=== PATIENT | male | born 1960 | race Caucasian/White ===

== ENCOUNTER → 2017-03-24 | Outpatient (CLI) | payer OTHER | LOC: CIMAGING 09:00 | PROVIDERS: ATTEND Surgery | DX: K80.20 Calculus of gallbladder without cholecystitis without obstruction (principal); K76.0 Fatty (change of) liver, not elsewhere classified | CPT/HCPCS: 76705-PO ==

== ENCOUNTER 2017-04-08 07:21 | Day surgery (SDC) | payer OTHER ==
[~2017-04-08 07:21] MED LIST: ceFAZolin 2 GM/DEXTROSE 100 ML IV ONE
[2017-04-08] MEDS ORDERED: LIDOCAINE 1% 2 ML INJ ONE (07:59)
[2017-04-08] MEDS ORDERED: LIDOCAINE 1% 2 ML INJ ID PRN (08:05)
[2017-04-08] MEDS ORDERED: LR 1,000 ML IV ONE (08:05)
[2017-04-08] MEDS ORDERED: BUPIVACAINE/EPI 0.25% 30 ML SDV ONE (08:06)
[2017-04-08] MEDS ORDERED: IOPAMIDOL (ISOVUE-M 300) 15 ML VIAL ONE (08:06)
--- NOTE | 2017-04-08 08:23 | PDHPUP ---
History & Physical Update H&P update statement: This history and physical update is based on an assessment of the patient which was completed after admission or registration (within 24 hours), but prior to the surgery/procedure. H&P update: H&P reviewed & patient examined, no change in patient's condition since H&P completed
[2017-04-08] MEDS ORDERED: PROPOFOL 200 MG/20 ML VIAL ONE ×2 (08:40→08:41)
[2017-04-08] MEDS ORDERED: fentaNYL 100 MCG/2 ML INJ ONE ×2 (08:41→09:59)
[2017-04-08] MEDS ORDERED: MIDAZOLAM 2 MG/2 ML VIAL ONE (08:41)
[2017-04-08 08:42] LABS: ANION GAP 10 mEq/L (8-16); CALCIUM 9.5 mg/dL (8.5-10.4); CARBON DIOXIDE 25 mEq/l (22-31); CHLORIDE 100 mEq/L (97-110); CREATININE 0.8 mg/dL (0.7-1.3); GLOMERULAR FILTRATION RATE > 60; GLUCOSE 95 mg/dL (70-100); POTASSIUM 3.9 mEq/L (3.5-5.2); SODIUM 135 mEq/L (134-144)
[2017-04-08] MEDS ORDERED: DEXAMETHASONE 4 MG/ML VIAL ONE (08:57)
[2017-04-08] MEDS ORDERED: ROCURONIUM 50 MG/5 ML VIAL ONE (08:57)
[2017-04-08] MEDS ORDERED: SUGAMMADEX SODIUM 200 MG/2 ML VIAL IVP ONE (08:57)
[2017-04-08] MEDS ORDERED: METOCLOPRAMIDE 10 MG/2 ML VIAL ONE (08:57)
[2017-04-08] MEDS ORDERED: KETOROLAC 30 MG/1 ML SDV ONE (08:57)
[2017-04-08] MEDS ORDERED: LIDOCAINE 2% 5 ML SDV ONE (08:57)
[2017-04-08] MEDS ORDERED: RANITIDINE 50 MG/2 ML VIAL ONE (08:57)
[2017-04-08] MEDS ORDERED: ONDANSETRON 4 MG/2 ML VIAL ONE (08:57)
--- NOTE | 2017-04-08 09:02 | PDANEPAE ---
ANE Past Medical History - Cardiovascular History Hx Hypertension: Yes Hx Arrhythmias: No Hx Chest Pain: No Hx Coronary Artery / Peripheral Vascular Disease: No Hx CHF / Valvular Disease: No Hx Palpitations: No - Pulmonary History Hx COPD: No Hx Asthma/Reactive Airway Disease: No Hx Recent Upper Respiratory Infection: No Hx Oxygen in Use at Home: No - Neurologic History Hx Cerebrovascular Accident: No Hx Seizures: No Hx Dementia: No - Endocrine History Hx Diabetes: No - Renal History Hx Renal Disorders: Yes - Liver History Hx Hepatic Disorders: Yes - Neurological & Psychiatric Hx Hx Neurological and Psychiatric Disorders: No - Cancer History Hx Cancer: Yes - Congenital Disorder History Hx Congenital Disorders: No - GI History Hx Gastrointestinal Disorders: No - Chronic Pain History Chronic Pain: No ANE Review of Systems - Exercise capacity METS (RN): 4 METS ANE Patient History - Allergies Allergies/Adverse Reactions: Sulfa (Sulfonamide Antibiotics) Allergy (Verified 04/01/17 11:40) Unknown - Home Medications Home Medications: LORAZEPAM PRN 04/01/17 [Last Taken 04/06/17] Lisinopril/Hydrochlorothiazide 04/01/17 [Last Taken 04/07/17 20:00] TESTOSTERONE 04/01/17 [Last Taken Unknown] - NPO status NPO Since - Liquids (Date): 04/07/17 NPO Since - Liquids (Time): 21:00 NPO Since - Solids (Date): 04/07/17 NPO Since - Solids (Time): 16:00 - Smoking Hx Smoking Status: Never smoked - Family Anes Hx Family Hx Anesthesia Complications: none ANE Labs/Vital Signs - Labs Result Diagrams: 04/08/17 08:10 - Vital Signs Blood Pressure: 131/96 Heart Rate: 80 Respiratory Rate: 21 O2 Sat (%): 92 Height: 180.34 cm Weight: 86.183 kg ANE Physical Exam - Airway Neck exam: FROM, short neck Mallampati Score: Class 2 Mouth exam: normal dental/mouth exam, river - Cardiovascular Cardiovascular: regular rate and rhythym - ASA Status ASA Status: III ANE Anesthesia Plan Anesthesia Plan: general endotracheal anesthesia
[2017-04-08] MEDS ORDERED: ONDANSETRON 4 MG/2 ML VIAL IVP PRN (09:10)
[2017-04-08] MEDS ORDERED: ENALAPRILAT DIHYDRATE 1.25 MG/ML VIAL IVP PRN (09:10)
[2017-04-08] MEDS ORDERED: ACETAMINOPHEN 500 MG TAB PO PRN (09:10)
[2017-04-08] MEDS ORDERED: OXYCODONE/APAP 5/325 TAB PO PRN (09:10)
[2017-04-08] MEDS ORDERED: METOCLOPRAMIDE 10 MG/2 ML VIAL IVP PRN (09:10)
[2017-04-08] MEDS ORDERED: DEXAMETHASONE 4 MG/ML VIAL IVP PRN (09:10)
[2017-04-08] MEDS ORDERED: MEPERIDINE 25 MG/ML SYR IVP PRN (09:10)
[2017-04-08] MEDS ORDERED: PROMETHAZINE HCL 25 MG/ML INJ IVP PRN (09:10)
[2017-04-08] MEDS ORDERED: NALOXONE HCL 0.4 MG/ML INJ IVP PRN (09:10)
[2017-04-08] MEDS ORDERED: ALBUTEROL 3 ML DEYVIAL IH PRN (09:10)
[2017-04-08] MEDS ORDERED: LR 500 ML IV PRN (09:10)
[2017-04-08] MEDS ORDERED: HYDROCODONE/APAP 5/325 TAB PO PRN (09:10)
--- NOTE | 2017-04-08 09:42 | POSTOPPROG ---
Post Op Note Date of Operation: 04/08/17 Surgeon: Gerson Barnett Anesthesiologist: Arturo Anesthesia: GET(General Endotracheal) Pre-op Diagnosis: Biliary Colic Post-op Diagnosis: chronic cholecystitis Procedure: lap kelly, liver biopsy Findings: liver appeared normal, critical view obtained Inf/Abcess present in the surg proc area at time of surgery?: No EBL: Minimal Specimen(s): gallbag, liver biopsy
[2017-04-08] MEDS: fentaNYL 100 MCG/2 ML INJ IVP PRN ×2 (10:01→10:10)
[2017-04-08] MEDS ORDERED: HYDROmorphONE/DILAUDID 1 MG/ML SYR ONE (10:29)
[2017-04-08] MEDS: HYDROmorphONE/DILAUDID 1 MG/ML SYR IVP PRN ×3 (10:30→11:19)
[2017-04-08 12:10] VITALS: BP 144/94; PULSE 93; RESP 16; O2SAT 94
--- NOTE | 2017-04-08 14:16 | GOP ---
[f rep st] OPERATIVE REPORT DATE OF OPERATION: 04/08/2017 SURGEON: Gerson Barnett MD SOFTWARE SUPPORT SPECIALIST: None. ANESTHESIA: General endotracheal. ANESTHESIOLOGIST: Sierra Thomas MD PREOPERATIVE DIAGNOSIS: Biliary colic. POSTOPERATIVE DIAGNOSIS: Chronic cholecystitis. PROCEDURE PERFORMED: 1. Laparoscopic cholecystectomy. 2. Liver biopsy. FINDINGS: Liver appeared normal. Critical view was obtained. SPECIMENS: 1. Gallbladder. 1. Liver biopsy. 2. ESTIMATED BLOOD LOSS: 10 cc. DESCRIPTION OF PROCEDURE: The patient was greeted in the preoperative suite. Once again, risks, be nefits, and alternatives were discussed. Consent was signed. He was then brought back to the opera tive suite, placed on the OR table in supine position. After all anesthesia machines, including SCD s, were on and functioning, [employer] timeout was performed ending with all in agree ment. Antibiotics were given on-call to the operating room. After successful induction of general anesthesia, the patient's abdomen was widely prepped and draped in typical sterile fashion. I enter ed the abdomen using the Veress needle in the left upper quadrant. I successfully achieved pneumope ritoneum to 15 mmHg which was well tolerated by the patient. I entered the abdomen using a 12 mm tr ocar in the Visiport technique infraumbilically through his previous site. Once successfully in the abdomen, I placed 3 additional 5 mm trocars, 1 in the subxiphoid, 2 in the right upper quadrant, al l under direct visualization. I identified the fundus of the gallbladder and successfully retracted over the dome of the liver. I then retracted the infundibulum laterally and, using a combination o f blunt dissection and electrocautery, I identified 2 and only 2 structures leading toward the gallb ladder. I clipped them both doubly proximally, singly distally and divided the duct and the artery. After this was done, I took the gallbladder off the liver bed using electrocautery. It was then p laced in an EndoCatch bag and removed. After this was done, hemostasis was noted to be excellent. I identified a site on the lateral portion of the liver where I sharply removed a portion of liver. This was removed and passed off. Hemostasis was achieved with electrocautery at this site. I then irrigated the right upper quadrant with warm normal saline, noting clear effluent in the suction ca nister. Once again, all my port sites were then instilled with local anesthetic and then removed un chevy direct visualization. I then closed my inferior umbilical incision using an 0 Vicryl stitch in a [id number] fashion noting excellent fascial reapproximation. The skin was closed with runnin g 4-0 Monocryl over which Dermabond was placed. The patient was then extubated in the operative james te and taken to the PACU in satisfactory condition. DRAINS: None. COUNTS: All counts were reported as correct x2. /[id number]/MODL
[2017-04-08 14:32] VITALS: TEMP 207.5
== END 2017-04-08 12:40 | disposition home or self-care (01) ==
LOC: FSGY 07:21
PROVIDERS: ATTEND Surgery
DX: K80.12 Calculus of gallbladder with acute and chronic cholecystitis without obstruction (principal); K76.0 Fatty (change of) liver, not elsewhere classified; C64.9 Malignant neoplasm of unspecified kidney, except renal pelvis; I10 Essential (primary) hypertension; Z88.2 Allergy status to sulfonamides; Z90.5 Acquired absence of kidney
CPT/HCPCS: J0690; J1100; J1170; J1885; J2250; J2405; J2704; J2765; J2780; J3010; Q9967